=== PATIENT | female | born 1995 | race Caucasian/White ===

== ENCOUNTER 2022-06-29 16:15 | Outpatient (REF) | payer BC, SELFPAY ==
[2022-06-29 16:50] LABS: HCG Qual (Serum) Negative
== END 2022-06-29 16:16 | disposition home or self-care (01) ==
LOC: NCHCN 16:15
PROVIDERS: Visit Provider Nurse Practitioner Family
DX: N91.2 Amenorrhea, unspecified (principal)
CPT/HCPCS: 84703

== ENCOUNTER 2022-08-20 18:16 | Outpatient (REF) | payer BC, SELFPAY ==
[2022-08-20 23:54] LABS: Bacteria Few HPF (Negative); C & S Indicated? C&S Done As Ordered; Casts Negative LPF (Negative); Crystals Negative HPF (Negative); Epithelial Cells Moderate HPF (Negative); Mucus Trace (Negative); Other Cells Rare Transitional (Negative); RBC 0-2 HPF (0-2)
== END 2022-08-20 18:17 | disposition home or self-care (01) ==
LOC: LBN 18:16
PROVIDERS: Visit Provider Nurse Practitioner Family
DX: R30.0 Dysuria (principal)
CPT/HCPCS: 87077; 81015; 87086; 87186

== ENCOUNTER 2023-05-22 13:07 | Outpatient (REF) | payer BC, SELFPAY ==
[2023-05-22 19:29] LABS: Abs Immature Grans 0.01 10^3/uL (0.0-0.06); Absolute Basophil Count 0.03 10^3/uL (0.0-0.2); Absolute Eosinophil Count 0.09 10^3/uL (0.0-0.7); Absolute Lymphocyte Count 2.16 10^3/uL (1.2-3.4); Absolute Monocyte Count 0.32 10^3/uL (0.1-0.8); Absolute Neutrophil Count 3.93 10^3/uL (1.2-6.7); Basophils % 0.5; Eosinophils % 1.4; HCT 37.9 % (36.0-46.0); HGB 12.5 g/dL (11.2-15.7); Immature Grans % 0.2; MCH 28.2 pg (27.0-33.0); MCV 86 fL (80-95); MPV 11.9 fL (8.0-11.0); Monocytes % 4.9; Platelet Count 286 10^3/uL (130-400); RBC 4.43 10^6/uL (3.93-5.22); RDW 12.8 % (11.7-14.6); RDW-SD 39.8 fL; WBC 6.54 10^3/uL (4.4-10.8)
[2023-05-22 19:47] LABS: ALT 38 U/L (14-59); AST 31 U/L (15-37); Albumin 4.2 g/dL (3.4-5.0); Alkaline Phosphatase 83 U/L (46-116); Anion Gap 9.5 mmol/L (3-11); BUN 11 mg/dL (7-18); Bilirubin, Total 0.3 mg/dL (0.2-1.0); CO2 27.5 mmol/L (21.0-32.0); CREATININE 0.7 mg/dL (0.55-1.02); Calcium 9.5 mg/dL (8.5-10.1); Chloride 104 mmol/L (98-107); Estimated GFR 119.24 (mL/min/1.73m2); Glucose 121 mg/dL (74-106); Potassium 3.9 mmol/L (3.5-5.1); Sodium 141 mmol/L (136-145); TSH (W/Ref FT4) 2.47 uIU/mL (0.36-3.74)
[2023-05-22 19:48] LABS: Hemoglobin A1C 5.7 % (<5.7)
== END 2023-05-22 13:08 | disposition home or self-care (01) ==
LOC: NCHCN 13:07
PROVIDERS: Visit Provider Nurse Practitioner Family
DX: Z31.9 Encounter for procreative management, unspecified (principal)
CPT/HCPCS: 80053; 83036; 84443; 85025

== ENCOUNTER 2023-06-07 14:23 | Outpatient (CLI) | payer BC, SELFPAY ==
[2023-06-07 14:25] LABS: HCG Quant, Pregnancy 1839 mIU/mL (1-3)
== END 2023-06-07 14:24 | disposition home or self-care (01) ==
LOC: LBO 14:23
PROVIDERS: Visit Provider Obstetrics & Gynecology Gynecology
DX: O20.9 Hemorrhage in early pregnancy, unspecified (principal)
CPT/HCPCS: 36415; 86850; 86900; 86901; 84702

== ENCOUNTER 2023-06-10 07:48 | Outpatient (CLI) | payer BC, SELFPAY ==
[2023-06-10 09:17] LABS: HCG Quant, Pregnancy 6546 mIU/mL (1-3)
== END 2023-06-10 07:49 | disposition home or self-care (01) ==
LOC: LBO 07:48
PROVIDERS: Visit Provider Obstetrics & Gynecology Gynecology
DX: O20.8 Other hemorrhage in early pregnancy (principal)
CPT/HCPCS: 36415; 84702

== ENCOUNTER 2023-07-16 01:34 | Outpatient (CLI) | payer BC, SELFPAY ==
[2023-07-16 16:22] LABS: Abs Immature Grans 0.03 10^3/uL (0.0-0.06); Absolute Basophil Count 0.04 10^3/uL (0.0-0.2); Absolute Eosinophil Count 0.05 10^3/uL (0.0-0.7); Absolute Lymphocyte Count 2.26 10^3/uL (1.2-3.4); Absolute Monocyte Count 0.53 10^3/uL (0.1-0.8); Absolute Neutrophil Count 7.12 10^3/uL (1.2-6.7); Basophils % 0.4 %; Eosinophils % 0.5 %; HCT 38.2 % (36.0-46.0); HGB 12.6 g/dL (11.2-15.7); Immature Grans % 0.3 %; Lymphocytes % 22.5 %; MCH 28.6 pg (27.0-33.0); MCV 87 fL (80-95); MPV 10.9 fL (8.0-11.0); Monocytes % 5.3 %; Platelet Count 302 10^3/uL (130-400); RBC 4.41 10^6/uL (3.93-5.22); RDW 13.3 % (11.7-14.6); RDW-SD 42.2 fL; WBC 10.03 10^3/uL (4.4-10.8)
[2023-07-17 10:17] LABS: Hepatitis B Surface Ag Negative (Negative)
[2023-07-17 10:48] LABS: Hepatitis C Ab w Rflx HCV PCR Negative (Negative)
[2023-07-17 10:51] LABS: HIV-1/2 Ag & Ab Screen Negative (Negative)
[2023-07-17 12:07] LABS: Varicella IgG Antibody Positive (See Note)
[2023-07-17 12:10] LABS: Rubella IgG Ab (UVM) Positive (See Note)
[2023-07-18 15:29] LABS: Syphilis IgG w/Reflex Nonreactive (Nonreactive)
[2023-07-22 07:41] LABS: Specimen WB Whole Blood
[2023-07-29 16:39] LABS: Result Summary NEGATIVE; Specimen WB Whole Blood
== END 2023-07-16 01:35 | disposition home or self-care (01) ==
LOC: LBO 01:34
PROVIDERS: Visit Provider Advanced Practice Midwife
DX: Z34.91 Encounter for supervision of normal pregnancy, unspecified, first trimester (principal)
CPT/HCPCS: 36415; 81220; 81222; 81329; 86787; 86803; 86850; 86900; 86901; 87340; 87389; 85025; 86762; 86780

== ENCOUNTER 2023-07-16 14:52 | Outpatient (REF) | payer BC, SELFPAY ==
--- NOTE | 2023-07-16 14:00 | PAPFT_PTH ---
PATIENT: Carmela Ragsdale LOC: [facility] U#:[id number] AGE/SX: 28/F ROOM: RE07/16/[address]: Michelle Arellano CNM : 1995 BED: DIS: 07/16/2023 SPEC #: [id number] RECD: 07/16/23 17:33 STATUS: MARY REQ #: [id number] SLY: 07/16/23 14:[address]: Michelle Arellano DEPT: [facility] Cytology RECD BY: bIeth Dumont ENTERED: 07/16/23 17:33 SP TYPE: PAPFT OT DR: Unknown,Unknown Tissues: 1 - CX/ENDOCX FOR PAP SMEARS Procedures: PAP THIN PREP/UVM Screening HPV DNA PROBE Comments: [id number] (NATHANIEL/KIM)
[2023-07-17 14:53] LABS: Chlamydia Result Negative (Negative); GC Result Negative (Negative)
== END 2023-07-16 14:53 | disposition home or self-care (01) ==
LOC: LBN 14:52
PROVIDERS: Visit Provider Advanced Practice Midwife
DX: Z34.91 Encounter for supervision of normal pregnancy, unspecified, first trimester (principal); B96.89 Other specified bacterial agents as the cause of diseases classified elsewhere
CPT/HCPCS: 87491; 87591; 88142; 87086; 87624

== ENCOUNTER 2023-08-02 02:35 | Outpatient (CLI) | payer BC, SELFPAY ==
[2023-08-02 14:09] LABS: Panorama Kit Sent via Fed Ex
[2023-08-02 14:22] LABS: Glucose,1 Hr (Glucola) 96 mg/dL (80-140)
== END 2023-08-02 02:36 | disposition home or self-care (01) ==
LOC: LBO 02:36
PROVIDERS: Visit Provider Advanced Practice Midwife
DX: Z34.91 Encounter for supervision of normal pregnancy, unspecified, first trimester (principal); Z3A.12 12 weeks gestation of pregnancy
CPT/HCPCS: 36415; 82950

== ENCOUNTER 2023-11-20 02:07 | Outpatient (CLI) | payer BC, SELFPAY ==
[2023-11-20 14:42] LABS: Glucose,1 Hr (Glucola) 147 mg/dL (80-140)
[2023-11-20 14:43] LABS: HCT 28.2 % (36.0-46.0); HGB 9.3 g/dL (11.2-15.7); MCH 27.4 pg (27.0-33.0); MCV 83 fL (80-95); MPV 11.2 fL (8.0-11.0); Platelet Count 278 10^3/uL (130-400); RDW 13.8 % (11.7-14.6); RDW-SD 41.5 fL; WBC 8.73 10^3/uL (4.4-10.8)
== END 2023-11-20 02:08 | disposition home or self-care (01) ==
LOC: LBO 02:07
PROVIDERS: Visit Provider Advanced Practice Midwife
DX: Z34.93 Encounter for supervision of normal pregnancy, unspecified, third trimester (principal); O26.899 Other specified pregnancy related conditions, unspecified trimester; Z67.91 Unspecified blood type, Rh negative
CPT/HCPCS: 36415; 82950; 85027; 86850; 90384

== ENCOUNTER 2023-11-28 03:07 | Outpatient (CLI) | payer BC, SELFPAY ==
[2023-11-28 11:12] LABS: Glucose 1 Hour 178 mg/dL
[2023-11-28 11:31] LABS: Glucose 3 Hour 91 mg/dL
== END 2023-11-28 03:08 | disposition home or self-care (01) ==
LOC: LBO 03:07
PROVIDERS: Visit Provider Advanced Practice Midwife
DX: Z34.93 Encounter for supervision of normal pregnancy, unspecified, third trimester (principal)
CPT/HCPCS: 36415; 82951

== ENCOUNTER 2023-12-17 03:11 | Outpatient (CLI) | payer BC, SELFPAY ==
[2023-12-17 15:26] LABS: HCT 35.9 % (36.0-46.0); HGB 11.5 g/dL (11.2-15.7); MCV 88 fL (80-95); MPV 11.5 fL (8.0-11.0); Platelet Count 232 10^3/uL (130-400); RDW 17.8 % (11.7-14.6); RDW-SD 55.7 fL; WBC 8.44 10^3/uL (4.4-10.8)
[2023-12-17 17:21] LABS: ALT 19 U/L (14-59); AST 18 U/L (15-37); Albumin 2.8 g/dL (3.4-5.0); Alkaline Phosphatase 98 U/L (46-116); BUN 8 mg/dL (7-18); Bilirubin, Total 0.29 mg/dL (0.2-1.0); CREATININE 0.7 mg/dL (0.55-1.02); Calcium 9.4 mg/dL (8.5-10.1); Chloride 105 mmol/L (98-107); Estimated GFR 119.24 (mL/min/1.73m2); Glucose 90 mg/dL (74-106); Potassium 3.8 mmol/L (3.5-5.1); Sodium 141 mmol/L (136-145); Total Protein 6.7 g/dL (6.4-8.2)
== END 2023-12-17 03:12 | disposition home or self-care (01) ==
LOC: LBO 03:11
PROVIDERS: Visit Provider Advanced Practice Midwife
DX: Z34.93 Encounter for supervision of normal pregnancy, unspecified, third trimester (principal); O99.013 Anemia complicating pregnancy, third trimester
CPT/HCPCS: 36415; 80053; 85027

== ENCOUNTER 2023-12-24 14:54 | Outpatient (REF) | payer BC, SELFPAY ==
[2023-12-24 16:53] LABS: Bilirubin Negative (Negative); Blood Trace-lysed (Negative); Clarity Sl Cloudy (Clear); Glucose Negative (Negative); Ketones Negative (Negative); Leukocyte Esterase Moderate (Negative); Nitrite Negative (Negative); Specific Gravity <= 1.005 (1.005-1.025); Urobilinogen 0.2 mg/dL (Up to 0.2)
[2023-12-24 17:09] LABS: Bacteria Few HPF (Negative); C & S Indicated? C&S Done As Ordered; Crystals Negative HPF (Negative); Epithelial Cells Many HPF (Negative); Mucus Negative (Negative); RBC 0-2 HPF (0-2); WBC >50 HPF (0-5)
== END 2023-12-24 14:55 | disposition home or self-care (01) ==
LOC: LBN 14:54
PROVIDERS: Visit Provider Advanced Practice Midwife
DX: Z34.93 Encounter for supervision of normal pregnancy, unspecified, third trimester (principal); R10.9 Unspecified abdominal pain
CPT/HCPCS: 81003; 81015; 87086

== ENCOUNTER 2024-01-01 00:56 | Outpatient (CLI) | payer BC, SELFPAY ==
--- NOTE | 2024-01-01 07:00 | DI.US_ITS ---
Exam(s) US OB CUBA WEIGHT EXAM: US OB CUBA WEIGHT CLINICAL HISTORY: bleeding,z34.90. TECHNIQUE: Transabdominal obstetrical ultrasound performed. COMPARISON: US POCUS EXAM from 07/16/2023 US US OB 2-3 TRIMESTER from 09/18/2023 US US OB F/U FACIAL/LVOT/RVOT from 10/02/2023 FINDINGS:: Number of fetuses: 1 position: CEPHALIC Placental location: POSTERIOR, grade 2. No placental abnormality. No evidence of previa. BIOMETRIC DATA: BPD: 8.8cm, 35weeks 4days HC: 32.47cm, 36weeks 5days AC: 33.46cm, 37weeks 3days FL: 6.96cm, 35weeks 5days EFW: 3,004.98g, 6lb 10.7oz, 97% Composite Age: 36weeks 3days BRIDGET: 01/26/2024 Heart Rate: 159bpm Amniotic fluid index: 14.28cm. Visually, amount of fluid is within normal limits. IMPRESSION: size is measuring approximately 2 weeks greater than dates. DATA REPOSITORY:
== END 2024-01-01 01:16 ==
LOC: DI 00:56
PROVIDERS: Visit Provider Advanced Practice Midwife
DX: Z34.93 Encounter for supervision of normal pregnancy, unspecified, third trimester (principal); Z3A.35 35 weeks gestation of pregnancy
CPT/HCPCS: 76816

== ENCOUNTER 2024-01-13 14:00 | Outpatient (REF) | payer BC, SELFPAY ==
[2024-01-13 18:31] LABS: PROTEIN 14.3 mg/dL; Prot/Crea Ur Ratio 0.24
== END 2024-01-13 14:01 | disposition home or self-care (01) ==
LOC: LBN 14:00
PROVIDERS: Visit Provider Advanced Practice Midwife
DX: Z34.93 Encounter for supervision of normal pregnancy, unspecified, third trimester (principal); R60.0 Localized edema
CPT/HCPCS: 82565; 84156; 87081

== ENCOUNTER 2024-02-04 14:38 | Inpatient (IN) | payer BC, SELFPAY ==
[2024-02-04] VITALS (92 sets, daily range): BP systolic 105–139; BP diastolic 57–81; PULSE 88–121; RESP 16–18; TEMP 36.6–37.2; O2SAT 96–100; BMI 26.5
[2024-02-04 13:48] LABS: ROM Plus Positive
--- NOTE | 2024-02-04 15:13 | W.PM.OBHPL1 ---
Date of service: 02/04/24 Time of Service: 15:13 Assessment and Plan Assessment and plan (1) Spontaneous onset of labor: Status: Acute Assessment and plan: Admit to Center and routine admission labs. Comfort measures. Consider augmentation of labor if indicated. Anticipate . OB-HPI Labor/Delivery History of Present Illness Reason for Visit: NST Chief Complaint: Uterine Contractions; Suspected Rupture of Membranes , Associated Signs and Symptoms of Suspected ROM: bloody mucus. BRIDGET Calculator Estimated Delivery Date Method Current WG Current Estimate 02/12/24 Ultrasound #1 38w 6d Other Estimates 01/31/24 LMP (Certain) 40w 4d History of Present Expected Delivery Route/Plan - CNM FOB/ - Brenden Jn (first child) BB yes to circ, not naming until after Wants to use the tub for labor, hopes to avoid epidural but ok if needed GBS negative Specific Issues/Plan 1. BMI 31, early glucola 88, 28 weeks- 147, 3-hrGTT nml x3, 2 hr level slightly elevated, fasting and 1 hr high-nml 1a. at 29 wk advise pt to avoid sweets, increase exercise, check random glucose at PNV, random glucose 90 2. cfDNA - WNL, CF & SMA negative, 3. Pt born via c/s, weighed 8'7, pt's mother also born by c/s 4. Pt reveals she thinks she has anxiety issues, never dx'ed or needed Rx 5. Rh negative, RhoGam @ 28 wks on 11/20/23 6. Heart defect - paternal cousin, [facility] level 2 offered. Informed cousin had hypo-plastic left heart 6a. Has decided to do US here at [facility] and will go [facility] for follow 7. Pt never started low dose ASA @ 12 wks as recommended, decided to start @ 22 wks 8. Desires LC consult after 36 wks but prior to 9. Anemia - Hgb 9.3 -Taking gummy vitamins, iron supplement daily recommended. 9. 12/16 - serum Hgb 11.5; POC hgb @ 36 wks-11.0 10. Size greater than dates - US at 34 weeks - 14.28, EFW 97%ile, QID testing x2 wks=nml Assessment: History Reviewed & Current Informed Consent Informed Consent: Risk,Benefits,Alternatives Discussed (expectant management v. labor augmentation. ) PFSH All Active Problems (Updated 02/04/24 @ 15:16 by Lisa Colin CNM) Spontaneous onset of labor (Acute) Pedal edema (Acute) Anemia affecting first (Acute) Rh negative state in antepartum period (Acute) Bleeding in early (Acute) 06/07/23. [place] discharge on toilet tissue. hCG 1839/ Rh Oneg 06/10/23. repeat hC. Pt will keep 07/01/23 u/s appt. (Acute) Medical History (Updated 02/04/24 @ 15:16 by Lisa Colin CNM) Missed menses Social History (System 10/18/23 @ 13:10 by Mila Dalton) Smoking/Tobacco Use Status: Never Smoking risk assessment performed?: Yes History History 1 Para 0 Hx # Term Pregnancies 0 Multiple births 0 Hx # Pregnancies 0 Ectopic pregnancies 0 AB induced 0 Hx Number of Living Children 0 AB spontaneous 0 Meds Allergies and Home Medications Allergies Allergy/AdvReac Type Severity Reaction Status Date / Time No Known Allergies Allergy Verified 01/31/24 09:10 Home Medications ?Medication ?Instructions ?Recorded ?Confirmed ?Type vits no.126-ferrous fum 1 tab PO DAILY 06/04/23 01/31/24 History 28 mg iron-folic acid 800 mcg tablet (Classic ) aspirin 81 mg chewable tablet 81 mg PO DAILY 11/05/23 01/31/24 History ferrous sulfate 325 mg (65 mg 325 mg PO DAILY #30 tabs 11/20/23 01/31/24 Rx iron) tablet (Feosol) polyethylene glycol 3350 17 17 g PO DAILY 01/01/24 01/31/24 History gram/dose oral powder (Miralax) pantoprazole 40 mg tablet,delayed 40 mg PO DAILY #30 tabs 01/10/24 01/31/24 Rx release (Protonix) docusate sodium 100 mg capsule 100 mg PO TID #90 caps 01/13/24 01/31/24 Rx (Colace) inulin 2 gram chewable tablet 2 g PO .two times daily 01/24/24 01/31/24 History (Fiber Gummies) Exam Physical Exam Vital signs: Pulse BP 102 H 126/81 02/04/24 13:16 02/04/24 13:16 Vital Signs Reviewed: Yes Constitutional Constitutional: no acute distress Detailed Labor and Delivery Exam Dilation: 1 Effacement (%): 50 station: -2 Cervix position: mid Consistency: soft Payne Score: Cervical Points Exam 0 1 2 3 Dilation Closed 1-2cm 3-4 cm 5-6cm Effacement 0-30% 40-50% 60-70% 80% Consistency Firm Medium Soft Station -3 -2 -1,0 +1,+2 Position Posterior Mid Anterior Amniotic Membrane Status: Ruptured Rupture Method: Spontaneous Amniotic Fluid: Clear Pooling: Negative ROM Plus: Positive Monitor Mode: External Contraction Frequency(min): every 2 min Contraction Duration(sec): 40 Contraction Intensity: Moderate Fetus A Heart Rate Baseline: 135 Monitor Accelerations: 15 X 15 Monitor Decelerations: None Variability: Moderate (6-25 BPM) Presentation: Cephalic Categories: Category I Date of Membrane Rupture: 02/04/24 Time of Membrane Rupture: 11:00 HEENT Exam HEENT Exam: Normal Respiratory Exam Respiratory Exam: Normal Cardiovascular Exam Cardiovascular Exam: Normal Exam Exam: Normal Extremities Exam Extremities Exam: Normal Skin Exam Skin Exam: Normal Psychiatric Exam Psychiatric Exam: Normal Risk Assessment Risk for Shoulder Dystocia Historical/Initial OB: POSITIVE FOR: Pre- BMI>30; NEGATIVE FOR: Pelvic Abnormality, Previous Shoulder Dystocia or Previous Macrosomia 36 Weeks: NEGATIVE FOR: Current Gestational DM, EFW>4500gms or Maternal Weight Gain>40lbs 40 Weeks: NEGATIVE FOR: EFW> 4500 gms, Maternal Weight Gain >40lb or Post Dates Increased Risk?: No Risk for Pre-Eclampsia Daily Dose ASA Indicated: Yes Date Initiated/Initials: to start low dose ASA at 12 wks. JK Yes, if one or more: NEGATIVE FOR: Hx Pre-E/Gest HTN, Chronic HTN, Multiple Gestation, Pre-gestational DM, Renal Disease, Systemic Lupus or APA Syndrome Yes, if 2 or more: POSITIVE FOR: Nulliparity, BMI>30 and Mother/Sister w/ Pre-E; NEGATIVE FOR: Age>= 35 yrs, >10yr btwn pregnancies, ethinicty or Previous IUGR Risk for Post- Hemorrhage Initial: NEGATIVE FOR: Multiple Gestation, Previous PPH, Known Clotting Deficiency, Grand Multiparity or Anticoagulation 36 Weeks: NEGATIVE FOR: Anemia, hgb<10, Low platelets(thrombocytopenia), Gestational HTN or Pre-E, Polyhydraminios or EFW>4500gms 40 Weeks: NEGATIVE FOR: Anemia, hgb<10, Low platelets (thrombocytopenia), Gestation HTN or Pre-E, Polyhydraminios or EFW>4500gms At Risk?: No Risks Reviewed Risks Reviewed Upon Admission: Yes
[2024-02-04 15:42] LABS: HCT 40.1 % (36.0-46.0); HGB 13.2 g/dL (11.2-15.7); MCH 28.3 pg (27.0-33.0); MCHC 32.9 % (32.0-36.0); MCV 86 fL (80-95); Platelet Count 199 10^3/uL (130-400); RBC 4.66 10^6/uL (3.93-5.22); RDW 16.2 % (11.7-14.6); WBC 10.81 10^3/uL (4.4-10.8)
[2024-02-04] MEDS: Lactated Ringers 250 ML 500 ML IV (19:55)
--- NOTE | 2024-02-04 19:57 | ANES.PREOP_ITS ---
General Info Date of Service Date Performed: 02/04/24 Height: 5 ft 3 in Weight: 68.039 kg Body Mass Index (BMI): 26.5 Meds Allergies and Home Medications Allergies Allergy/AdvReac Type Severity Reaction Status Date / Time No Known Allergies Allergy Verified 01/31/24 09:10 Home Medication ?Medication ?Instructions ?Recorded vits no.126-ferrous fum 1 tab PO DAILY 06/04/23 28 mg iron-folic acid 800 mcg tablet (Classic ) aspirin 81 mg chewable tablet 81 mg PO DAILY 11/05/23 ferrous sulfate 325 mg (65 mg 325 mg PO DAILY #30 tabs 11/20/23 iron) tablet (Feosol) polyethylene glycol 3350 17 17 g PO DAILY 01/01/24 gram/dose oral powder (Miralax) pantoprazole 40 mg tablet,delayed 40 mg PO DAILY #30 tabs 01/10/24 release (Protonix) docusate sodium 100 mg capsule 100 mg PO TID #90 caps 01/13/24 (Colace) inulin 2 gram chewable tablet 2 g PO .two times daily 01/24/24 (Fiber Gummies) Current Visit Medications: Current Medications Generic Name Dose Route Start Last Admin Trade Name Freq PRN Reason Stop Dose Admin IV Miscellaneous Supplies 1 each 02/04/24 14:45 Iv Access IV DIRECTED SUSI Sodium Chloride 0 ml 02/04/24 14:38 Normal Saline Flush 10 Ml Syr IVP PRN PRN Sodium Chloride 0 ml 02/04/24 20:00 Normal Saline Flush 10 Ml Syr IVP BID SUSI Sodium Chloride 0 ml 02/04/24 14:38 Normal Saline 10 Ml Vial IJ DIRECTED PRN PFSH Active Problems Active Problems: Problem Status Onset Code Spontaneous onset of labor Acute Pedal edema Acute R60.0 Anemia affecting first Acute O99.019 Rh negative state in antepartum period Acute O26.899, Z67.91 Bleeding in early Acute O20.9 Acute Z34.90 Medical History Medical History (Updated 02/04/24 @ 15:16 by Lisa Colin CNM) Missed menses Tobacco Smoking/Tobacco Use Status: Never Alcohol Alcohol Intake: former Substance Use Substance use type: does not use Prental History History 2 1 Para 0 Hx # Term Pregnancies 0 Multiple births 0 Hx # Pregnancies 0 Ectopic pregnancies 0 AB induced 0 Hx Number of Living Children 0 AB spontaneous 0 Vital Signs and Lab Results Vital Signs Most Recent Vital Signs in EMR: Most Recent Vital Signs Temp Pulse Resp BP Pulse Ox 37.2 C 104 H 16 110/62 98 02/04/24 19:27 02/04/24 19:27 02/04/24 19:27 02/04/24 19:27 02/04/24 19:27 Lab Results 02/04/24 15:25 Blood Type / Crossmatch: 2 Antibody Screen POSITIVE 02/04/24 Complete Blood Count: 2 White Blood Count 10.81 10^3/uL (4.4-10.8) H 02/04/24 15:25 Red Blood Count 4.66 10^6/uL (3.93-5.22) 02/04/24 15:25 Hemoglobin 13.2 g/dL (11.2-15.7) 02/04/24 15:25 Hematocrit 40.1 % (36.0-46.0) 02/04/24 15:25 Platelet Count 199 10^3/uL (130-400) 02/04/24 15:25 Complete Metabolic Panel: 2 No Data to Display Liver Function Panel: 2 No Data to Display Coagulation Panel: 2 No Data to Display Cardiac Panel: 2 No Data to Display Arterial Blood Gas: 2 No Data to Display Venous Blood Gas: 2 No Data to Display Pancreas Panel: 2 No Data to Display Thyroid Panel: 2 No Data to Display Infectious Disease: 2 No Data to Display Blood Cultures: 2 No Data to Display Toxicology Panel: 2 No Data to Display Panel: 2 No Data to Display Anesthesia Assessment and Plan Anesthesia History Personal History: No History of General Anesthesia Family History: No Family History of Anesthesia Complications Exercise Tolerance Exercise Tolerance: Metabolic Equivalents>4 Pertinent Negatives Pertinent Negatives: No Major Cardiovascular Symptoms or Complaints and No Major Pulmonary Symptoms or Complaints Cardiac & Pulmonary Exam Cardiac Exam: Normal S1/S2 Heart Sounds Pulmonary Exam: Clear Bilateral Breath Sounds Implantable Cardiac Device Does patient have a Pacemaker or an ICD?: No Airway Exam Known Difficult Airway: No Mallampati Class: 3 Mouth Opening: Normal (> 3cm) Thyromental Distance: Greater than 3 cm Neck Range of Motion: Full ROM Neck Circumference: Thick Teeth Condition: Normal Dentition ASA Classification ASA Score: ASA 2 Emergency Case?: No NPO Status NPO Status: Full Stomach Status Status: Confirmed Anesthesia Plan Resuscitation Status: Full Code Anesthesia Technique: Labor Epidural Airway Planned: Natural Airway Monitors Used: Standard Monitors
[2024-02-04] MEDS: fentaNYL 100 MCG/2 ML VIAL (20:28)
[2024-02-04] MEDS: Bupivacaine 0.25% Pres-Free 10 ML VIAL (20:28)
[2024-02-04] MEDS: FentaNYL/ROPIvacaine 2 mcg/ml and 0.1% 200 ML CADD Cassette EP (20:52)
--- NOTE | 2024-02-04 20:59 | W.ANESNEU ---
Epidural/Spinal Catheter Date Performed: 02/04/24 Procedure Start: 20:19 Procedure Stop: 20:54 Requesting Provider: Lisa Colin Procedure Location: Obstetrics Reason Performed: Labor Epidural Standard Monitors Applied: Blood Pressure, SpO2 and See EMR for corresponding vital signs Patient Position: Sitting Sedation Given (Indicate Dose Given): No Sedation given Patient Mental Status: Awake Sterility: Hand Hygiene, Surgical Cap, Surgical Mask, Sterile Gloves, Sterile Drape/Sheet and Chlorhexidine Procedure Location: L3-L4 Interspace Epidural Needle: Tuohy 18 Gauge Needle Length: 3.5 Inch Needle Approach: Midline Epidural Procedure: Skin Prepped, Sterile Drape Placed, 1% Lidocaine to skin and subcutaneous tissue with 25G needle, Tuohy Needle placed, ASHVIN to Saline Used, Epidural Catheter Placed, Negative Heme, Negative CSF Flow and Tuohy Needle Removed Catheter Placed?: Catheter Placed Test Dose (Indicate Dose Given): 3ml 1.5% Lidocaine with 1:200K Epinephrine Given and Negative Test Dose Loss of Resistance Depth (cm): 7 Catheter depth at skin (cm): 13 Dressing: [place] Dressing Placed and Mastisol Used Epidural Provider Bolus (Indicate Dose Given): Total bolus dose given in 3-5 ml divided doses and Total Bupivacaine 0.25% Given (ml) Dose:: 5 mL Additives (Indicate Dose Given ): Fentanyl PF Dose:: 100 mcg Infusion Medication: Medication Infusion Began Medication Infusion: Ropivacaine 0.1% with Fentanyl 2mcg/ml Maintenance Infusion Rate (ml/hour): 10 PCEA Bolus Dose (ml): 5 Post Procedure Pain score (0-10): 2 Block Level: N/A Paresthesia: Left Paresthesia Duration: Transient Ultrasound: Not Used Number of Attempts (See previous attempts in note section): 1 Procedure Tolerated: No Complications and Patient tolerated well Procedure Outcome: Successful Procedure Comment:: Left leg with slight numbness below knee, good strong pedal push bilateral, equal melissa comfort level at abdomen. Performed By: Mikala Cruz
[2024-02-05] VITALS (163 sets, daily range): BP systolic 94–133; BP diastolic 53–97; PULSE 0–176; RESP 16–88; TEMP 35.9–38.1; O2SAT 92–100
--- NOTE | 2024-02-05 00:13 | W.PM.OBNL1 ---
Date of service: 02/05/24 Time of Service: 00:13 Informed Consent Informed Consent: Risk,Benefits,Alternatives Discussed (expectant management v. labor augmentation. ) Pelvic Exam Dilation: 10 station: -1 Comments: caput noted Contractions Monitor Mode: External Contraction Frequency(min): every 3 min Contraction Duration(sec): 40 Intensity: Moderate/Strong Fetus A Monitor: External (US) Heart Rate Baseline: 150 Presentation: Cephalic Variability: Moderate (6-25 BPM) Categories: Category I FHR Rhythm: Regular Accelerations: 15 X 15 Decelerations: Variable Recurrence: Episodic Amniotic Membrane Status: Ruptured Rupture Method: Spontaneous Amniotic Fluid: Bloody and Clear Date of Membrane Rupture: 02/04/24 Time of Membrane Rupture: 06:00 Assessment and Plan Assessment and plan (1) Spontaneous onset of labor: Status: Acute Assessment and plan: Genoveva attempted a push and she had no control of her muscles due to epidural. Will encourage rest and laboring down and begin pushing when the urge is stronger. Anticipate . Repositioned on her right side with the peanut ball. Objective Abnormal lab results 02/04/24 Range/Units 15:25 WBC 10.81 H (4.4-10.8) 10^3/uL RDW 16.2 H (11.7-14.6) % MPV 12.0 H (8.0-11.0) fL Temp Pulse Resp BP Pulse Ox 98.6 F 114 H 16 119/61 99 02/04/24 21:18 02/04/24 23:32 02/04/24 22:00 02/04/24 23:19 02/04/24 23:32 Laboratory Results WBC 10.81 10^3/uL (4.4-10.8) H 02/04/24 15:25 RBC 4.66 10^6/uL (3.93-5.22) 02/04/24 15:25 Hgb 13.2 g/dL (11.2-15.7) 02/04/24 15:25 Hct 40.1 % (36.0-46.0) 02/04/24 15:25 MCV 86 fL (80-95) 02/04/24 15:25 MCH 28.3 pg (27.0-33.0) 02/04/24 15:25 MCHC 32.9 % (32.0-36.0) 02/04/24 15:25 RDW 16.2 % (11.7-14.6) H 02/04/24 15:25 Plt Count 199 10^3/uL (130-400) 02/04/24 15:25 MPV 12.0 fL (8.0-11.0) H 02/04/24 15:25 Membranes Rupture Positive 02/04/24 13:05 ABO/Rh O Negative 02/04/24 14:55 Antibody Screen POSITIVE 02/04/24 14:55 Antibody Identification Anti-D 02/04/24 14:55 Subjective Patient Reports: New Complaints Interval history since last seen: Genoveva rested but was unable to sleep. She felt an increase in pressure and requested a cervical exam. Results Hemoglobin/Hematocrit: Hgb 13.2 g/dL (11.2-15.7) 02/04/24 15:25 Hct 40.1 % (36.0-46.0) 02/04/24 15:25 Abnormal Lab Findings: Abnormal Labs 02/04/24 15:25 WBC 10.81 H RDW 16.2 H MPV 12.0 H
--- NOTE | 2024-02-05 00:17 | W.PM.OBNL1 ---
Date of service: 02/04/24 Time of Service: 21:00 Informed Consent Informed Consent: Risk,Benefits,Alternatives Discussed (expectant management v. labor augmentation. ) Pelvic Exam Dilation: 4 Effacement (%): 90 station: -2 Cervix Position: mid Consistency: soft Vaginal Exam Presentation: Vertex Comments: bloody show noted Contractions Monitor Mode: External Contraction Frequency(min): every 3 min Contraction Duration(sec): 60 Intensity: Strong Fetus A Monitor: External (US) Presentation: Cephalic Variability: Moderate (6-25 BPM) Categories: Category I FHR Rhythm: Regular Accelerations: 15 X 15 Decelerations: None Amniotic Membrane Status: Ruptured Rupture Method: Spontaneous Amniotic Fluid: Bloody Date of Membrane Rupture: 02/04/24 Time of Membrane Rupture: 06:00 Assessment and Plan Assessment and plan (1) Spontaneous onset of labor: Status: Acute Assessment and plan: rest was encouraged and comfort measures. Anticipate . Will reassess in 3 hours. Objective Abnormal lab results 02/04/24 Range/Units 15:25 WBC 10.81 H (4.4-10.8) 10^3/uL RDW 16.2 H (11.7-14.6) % MPV 12.0 H (8.0-11.0) fL Temp Pulse Resp BP Pulse Ox 98.6 F 114 H 16 119/61 99 02/04/24 21:18 02/04/24 23:32 02/04/24 22:00 02/04/24 23:19 02/04/24 23:32 Laboratory Results WBC 10.81 10^3/uL (4.4-10.8) H 02/04/24 15:25 RBC 4.66 10^6/uL (3.93-5.22) 02/04/24 15:25 Hgb 13.2 g/dL (11.2-15.7) 02/04/24 15:25 Hct 40.1 % (36.0-46.0) 02/04/24 15:25 MCV 86 fL (80-95) 02/04/24 15:25 MCH 28.3 pg (27.0-33.0) 02/04/24 15:25 MCHC 32.9 % (32.0-36.0) 02/04/24 15:25 RDW 16.2 % (11.7-14.6) H 02/04/24 15:25 Plt Count 199 10^3/uL (130-400) 02/04/24 15:25 MPV 12.0 fL (8.0-11.0) H 02/04/24 15:25 Membranes Rupture Positive 02/04/24 13:05 ABO/Rh O Negative 02/04/24 14:55 Antibody Screen POSITIVE 02/04/24 14:55 Antibody Identification Anti-D 02/04/24 14:55 Subjective Patient Reports: New Complaints Interval history since last seen: Genoveva complains of stronger contractions and requested an epidural. She reports that she began leaking small amounts of clear fluid at 0600 this morning. Epidural was placed by Tasha solorio CNM with excellent effect Results Hemoglobin/Hematocrit: Hgb 13.2 g/dL (11.2-15.7) 02/04/24 15:25 Hct 40.1 % (36.0-46.0) 02/04/24 15:25 Abnormal Lab Findings: Abnormal Labs 02/04/24 15:25 WBC 10.81 H RDW 16.2 H MPV 12.0 H
[2024-02-05] MEDS: Acetaminophen 500 MG TAB 1000 MG PO (01:00)
[2024-02-05] MEDS: AMPICILLIN SODIUM 2 GM in Normal Saline 100 ML IVPB ×4 (02:00→20:58)
--- NOTE | 2024-02-05 02:01 | PGE_ITS ---
Date of service: 02/05/24 Time of Service: 02:02 Informed Consent Informed Consent: Risk,Benefits,Alternatives Discussed (expectant management v. labor augmentation. ) Pelvic Exam Dilation: 10 station: 0 Contractions Monitor Mode: External Contraction Frequency(min): every 3-4 Contraction Duration(sec): 60 Intensity: Moderate/Strong Fetus A Monitor: Internal (FSE) Heart Rate Baseline: 160 Presentation: Cephalic Variability: Moderate (6-25 BPM) Categories: Category II CategoryII Plan of Care: Intrauterine Resuscitation (IV fluid bolus and tylenol 1000 mg PO), Team Huddle, Observation, Medical Consult (Dr Saxena) and Continuous Monitoring/Observation FHR Rhythm: Regular Accelerations: 15 X 15 Decelerations: None Assessment and Plan Assessment and plan (1) Spontaneous onset of labor: Status: Acute Assessment and plan: Virgen was encouraged to take a break from pushing and will reassess in 1 hour. Indications for section discussed with Genoveva and Brenden if there is failure to progress or tachycardia persists. (2) Maternal fever affecting labor: Status: Acute Assessment and plan: Per consultation with Dr Villa. Ampicillin and gentamycin ordered and comfort measures provided. Will allow the baby to labor down and reassess in 1 hour. Objective Abnormal lab results 02/04/24 Range/Units 15: WBC 10.81 H (4.4-10.8) 10^3/uL RDW 16.2 H (11.7-14.6) % MPV 12.0 H (8.0-11.0) fL Temp Pulse Resp BP Pulse Ox 100.0 F H 117 H 16 133/61 98 02/05/24 00:52 02/05/24 02:01 02/04/24 22:00 02/05/24 01:19 02/05/24 02:01 Laboratory Results WBC 10.81 10^3/uL (4.4-10.8) H 02/04/24 15:25 RBC 4.66 10^6/uL (3.93-5.22) 02/04/24 15:25 Hgb 13.2 g/dL (11.2-15.7) 02/04/24 15:25 Hct 40.1 % (36.0-46.0) 02/04/24 15:25 MCV 86 fL (80-95) 02/04/24 15:25 MCH 28.3 pg (27.0-33.0) 02/04/24 15:25 MCHC 32.9 % (32.0-36.0) 02/04/24 15:25 RDW 16.2 % (11.7-14.6) H 02/04/24 15:25 Plt Count 199 10^3/uL (130-400) 02/04/24 15:25 MPV 12.0 fL (8.0-11.0) H 02/04/24 15:25 Membranes Rupture Positive 02/04/24 13:05 ABO/Rh O Negative 02/04/24 14:55 Antibody Screen POSITIVE 02/04/24 14:55 Antibody Identification Anti-D 02/04/24 14:55 Vital Signs Reviewed: Yes Subjective Patient Reports: New Complaints Interval history since last seen: Virgen has had an urge to push and has been pushing off and on in various positions. tachycardia noted with heart rate 160s-170s. Maternal temp 100 and 100.5. Genoveva is complaining of pain and states that she is unable to continue pushing due to the pain. She was encouraged to push the epidural [employer] and she was repositioned to a seated position for her comfort Results Hemoglobin/Hematocrit: Hgb 13.2 g/dL (11.2-15.7) 02/04/24 15:25 Hct 40.1 % (36.0-46.0) 02/04/24 15:25 Abnormal Lab Findings: Abnormal Labs 02/04/24 15:25 WBC 10.81 H RDW 16.2 H MPV 12.0 H
--- NOTE | 2024-02-05 03:09 | W.OBCONSULT ---
Date of service: 02/05/24 Time of Service: 03:09 Assessment and Plan Assessment and plan (1) Maternal fever affecting labor: Status: Acute (2) Arrested labor: Status: Acute Assessment and plan: Preop counseling: She was informed of the risks of procedure including risk of damage to bowel, bladder, and blood vessels during the time of the delivery. If any of those injuries were to occur she may require a repair at the time of surgery or blood transfusion or possible hysterectomy. I reviewed the risk of infection and the administration of IV Abx prior to and postop secondary to maternal fevery. Informed consent was obtained and her questions were answered. History of Present Illness History of Present Illness Chief Complaint: Arrest of descent at 39w EGA. Maternal fever. Narrative: Pt is a 29yo female currently 39w0d EGA who was admitted to in early labor on 02/04/24 after an unremarkable course. She has been followed by CNM service since 1st trimester. SROM at 0600 on 02/04/24. . Pt labored throughout the day and received an epidural for labor analgesia. She was completely dilated and began maternal expulsive efforts at 00:10 02/05/24. At that time there FHR baseline increased to 170 range and maternal feverto 38.2 noted. She was given IV Ampicillin and Gentamycin. Despite excellent materna effort presenting vertex remained at 0 station with caput present. FHR category 1. Pt requested a primary delivery and I concurred that it would be in her best interest to have a delivery. Consults Consult date: 02/05/24 Requesting physician: Lisa Colin Review of Systems All systems reviewed & are unremarkable except as noted in HPI and below PFSH All Active Problems (Updated 02/05/24 @ 03:27 by Enma Villa MD) Arrested labor (Acute) Maternal fever affecting labor (Acute) Spontaneous onset of labor (Acute) Pedal edema (Acute) Anemia affecting first (Acute) Rh negative state in antepartum period (Acute) Bleeding in early (Acute) 06/07/23. [place] discharge on toilet tissue. hCG 1839/ Rh Oneg 06/10/23. repeat hC. Pt will keep 07/01/23 u/s appt. (Acute) Medical History (Updated 02/05/24 @ 03:27 by Enma Villa MD) Missed menses Social History (System 10/18/23 @ 13:10 by Mila Dalton) Smoking/Tobacco Use Status: Never Smoking risk assessment performed?: Yes Alcohol Intake: former Substance use type: does not use Housing: house Do you feel safe at home: Yes Do you feel safe in your relationship?: Yes History History 1 Para 0 Hx # Term Pregnancies 0 Multiple births 0 Hx # Pregnancies 0 Ectopic pregnancies 0 AB induced 0 Hx Number of Living Children 0 AB spontaneous 0 Exam Narrative Exam Narrative: Sitting in bed with head elevated and foot lowered. No acute distress. Const General: no acute distress Orientation: alert, awake and oriented x3 Resp Effort & Inspection: normal respiratory effort Auscultation: clear to auscultation bilaterally Cardio Rate: regular rate Rhythm: regular rhythm GI Inspection: other (gravid, no focal tenderness) Other: SVE: complete dilation. 0 station. caput. Skin General skin exam: no rashes or lesions noted Neuro General: other (comfortable with epidural in place.) Extrem General: normal to inspection and capillary refill normal Psych Appearance: grossly normal Mental Status: mental status grossly normal Speech and Movement: speech and movement normal Results Last Vital Signs Temp 99.0 F 02/05/24 02:50 Pulse 107 H 02/05/24 03:08 Resp 18 02/05/24 02:00 BP 125/74 02/05/24 03:03 Pulse Ox 98 02/05/24 03:06 Labs 02/04/24 15:25 Labs: Laboratory Results - last 24 hr 02/04/24 02/04/24 02/04/24 13:05 14:55 15:25 WBC Cancelled 10.81 H RBC Cancelled 4.66 Hgb Cancelled 13.2 Hct Cancelled 40.1 MCV Cancelled 86 MCH Cancelled 28.3 MCHC Cancelled 32.9 RDW Cancelled 16.2 H Plt Count Cancelled 199 MPV Cancelled 12.0 H Membranes Rupture Positive ABO/Rh O Negative Antibody Screen POSITIVE Antibody Identification Anti-D
--- NOTE | 2024-02-05 03:20 | PGE_ITS ---
Date of service: 02/05/24 Time of Service: 03:20 Informed Consent Informed Consent: Risk,Benefits,Alternatives Discussed (expectant management v. labor augmentation. ) Contractions Monitor Mode: External Contraction Frequency(min): every 3-5 Contraction Duration(sec): 60 Intensity: Moderate Fetus A Monitor: Internal (FSE) Heart Rate Baseline: 158 Presentation: Vertex Variability: Moderate (6-25 BPM) Categories: Category I FHR Rhythm: Regular Accelerations: 15 X 15 Decelerations: Variable Recurrence: Episodic Assessment and Plan Assessment and plan (1) Maternal fever affecting labor: Status: Acute Assessment and plan: Afebrile (2) Spontaneous onset of labor: Status: Acute Assessment and plan: prepar efor section Objective Abnormal lab results 02/04/24 Range/Units 15:25 WBC 10.81 H (4.4-10.8) 10^3/uL RDW 16.2 H (11.7-14.6) % MPV 12.0 H (8.0-11.0) fL Temp Pulse Resp BP Pulse Ox 99.0 F 112 H 18 128/81 99 02/05/24 02:50 02/05/24 03:18 02/05/24 02:00 02/05/24 03:18 02/05/24 03:16 Laboratory Results WBC 10.81 10^3/uL (4.4-10.8) H 02/04/24 15:25 RBC 4.66 10^6/uL (3.93-5.22) 02/04/24 15:25 Hgb 13.2 g/dL (11.2-15.7) 02/04/24 15:25 Hct 40.1 % (36.0-46.0) 02/04/24 15:25 MCV 86 fL (80-95) 02/04/24 15:25 MCH 28.3 pg (27.0-33.0) 02/04/24 15:25 MCHC 32.9 % (32.0-36.0) 02/04/24 15:25 RDW 16.2 % (11.7-14.6) H 02/04/24 15:25 Plt Count 199 10^3/uL (130-400) 02/04/24 15:25 MPV 12.0 fL (8.0-11.0) H 02/04/24 15:25 Membranes Rupture Positive 02/04/24 13:05 ABO/Rh O Negative 02/04/24 14:55 Antibody Screen POSITIVE 02/04/24 14:55 Antibody Identification Anti-D 02/04/24 14:55 Vital Signs Reviewed: Yes Notable Details: Temp 99.0 Subjective Patient Reports: No new Complaints Interval history since last seen: Genoveva received ampicillin and gentamycin IV. She complained of severe pain and was encouraged to stop pushing and remain in a comfortable position. She requested a delivery. 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 Dr. Villa was called to assess Genoveva and she performed a vaginal exam which showed limited descent and large caput. Options were discussed with Genoveva and Brenden and they agree to a at this time. Results Hemoglobin/Hematocrit: Hgb 13.2 g/dL (11.2-15.7) 02/04/24 15:25 Hct 40.1 % (36.0-46.0) 02/04/24 15:25 Abnormal Lab Findings: Abnormal Labs 02/04/24 15:25 WBC 10.81 H RDW 16.2 H MPV 12.0 H
[2024-02-05] MEDS: Lactated Ringers 1,000 ML 30 ML IV ×2 (03:52→08:31)
[2024-02-05] MEDS: Azithromycin 500 MG VIAL (04:15)
--- NOTE | 2024-02-05 04:26 | PLAC_PTH ---
PATIENT: Carmela Ragsdale LOC: OBS U#:[id number] AGE/SX: 29/F ROOM: OBS.303 RE02/04/[address]: Lisa Colin : 1995 BED: A DIS: 02/07/2024 SPEC #: [id number] RECD: 02/05/24 12:52 STATUS: SOUEdgar REQ #: [id number] SLY: 02/05/24 04:[address]: Enma Villa DEPT: Surgical Specimen RECD BY: Ibeth Dumont ENTERED: 02/05/24 12:54 SP TYPE: PLAC OTHR DR: Lisa Colin Tissues: 1 - PLACENTA (3RD TRIMESTER) Procedures: GROSS AND MICRO LEVEL 5 Comments: [id number]
[2024-02-05] MEDS: Bupivacaine 0.25% Pres-Free 30 ML VIAL (05:04)
--- NOTE | 2024-02-05 05:21 | W.PM.OBCSECT ---
Date of service: 02/05/24 Time of Service: 05:21 Operative Note Operative Note Delivery Method: Unscheduled STAT: No and Primary NTSV>37 Weeks: Yes DATE OF PROCEDURE: 02/05/24 PRE-OP DIAGNOSES: IUP@ 39w0d EGA, maternal fever in labor, arrest of descent POST-OP DIAGNOSES: same PROCEDURE: Primary low-transverse delivery SURGEON: Enma Villa Automatic Cigar Wrapper Tender: Lisa Colin Anesthesia: spinal Estimated blood loss (mL): 400 Pathology: other (Placenta to pathology, umbilical cord gases to lab) Complications: None Patient was transported to: floor Patient's condition: stable Indications: 29-year-old G1 now P1 female with spontaneous rupture of membranes at 39 weeks EGA who had arrest of descent at 0 station and maternal fever in labor. Findings: Viable male in OP position, Weight: 8lbs 14oz Apgars: / , meconium stained amniotic fluid normal placenta and adnexa Procedure Description: Patient was taken to the operating room she is placed in the sitting position, her epidural catheter was removed and spinal anesthesia was administered without difficulty. She was then placed in the dorsal supine position with a leftward tilt. SCDs and a Tirado catheter to gravity drainage were in place. A vaginal prep with Betadine was performed and the patient was prepped and draped in the usual sterile fashion.Surgical timeout was performed. Preop antibiotics were administered. After a adequate level of anesthesia was achieved a Pfannenstiel skin incision was made approximately 2 cm superior to the pubic symphysis using a scalpel and the underlying subcutaneous tissue dissected using Bovie electrocautery to the level of the rectus fascia. The rectus fascia was then nicked in the midline and the fascial incision extended laterally using Bovie electrocautery. 2 Brando clamps were applied to the superior rectus fascia and the rectus fascia was dissected off of the underlying rectus muscles using Bovie electrocautery and blunt technique. A similar technique was carried out on the inferior rectus fascia. Rectus muscles were then in the midline and the peritoneum entered bluntly. The peritoneal incision was extended laterally using blunt technique. The vesicle-uterine peritoneum over lower uterine segment was incised with curved Metsumbaum scissors and the bladder flap created bluntly. Scalpel was used to incise the lower uterine segment in a transverse fashion. The uterine incision was extended bluntly and the amniotic sac was ruptured with clear amniotic fluid noted. A single gloved hand was placed into the uterine cavity and the head was successfully disengaged after approximately a minute of gentle pressure in a cephalad direction. Once the vertex was freed from the pelvic inlet the head was delivered through the uterine incision followed by the trunk and extremities with the assistance of fundal pressure. The cord was doubly clamped and cut and the handed off to the waiting pediatric team. A segment of umbilical cord was obtained and the placenta was extracted with a combination of fundal massage and gentle cord traction. The uterus was exteriorized cleared of all clots and debris and the uterine incision reapproximated with a running lock suture of 0 Vicryl followed by a second imbricating suture of 0 Vicryl. Uterine incision was noted be hemostatic. The uterus was returned to the abdomen and the paracolic gutters cleared of all clots and debris. Uterine incision and the along with the bladder flap and the abdominal wall were all inspected and noted to be hemostatic. The rectus fascia was reapproximated with a running suture of 0 Vicryl. space within the subcutaneous tissue closed with a running suture of 2-0 Vicryl. The skin incision was reapproximated with a subcuticular closure of 4-0 Vicryl. Steri strips, skin glue and a Mepilex dressing were applied. The uterus was massaged for any remaining clots and debris. The patient was transported to recovery area in stable condition. All sponge, lap, and needle counts correct x2. [place] Gender: Male weight: 8 lb 14 oz Gender-Baby B: Male
[2024-02-05 07:44] LABS: Abs Immature Grans 0.07 10^3/uL (0.0-0.06); Absolute Eosinophil Count 0.03 10^3/uL (0.0-0.7); Absolute Lymphocyte Count 1.25 10^3/uL (1.2-3.4); Absolute Monocyte Count 0.94 10^3/uL (0.1-0.8); Basophils % 0.3 %; Eosinophils % 0.2 %; HCT 36.4 % (36.0-46.0); HGB 11.9 g/dL (11.2-15.7); Immature Grans % 0.5 %; Lymphocytes % 8.1 %; MCH 28.3 pg (27.0-33.0); MCHC 32.7 % (32.0-36.0); MCV 87 fL (80-95); MPV 11.4 fL (8.0-11.0); Monocytes % 6.1 %; Neutrophils % 84.8 %; Platelet Count 180 10^3/uL (130-400); RDW 16.5 % (11.7-14.6); RDW-SD 52.1 fL; WBC 15.44 10^3/uL (4.4-10.8)
[2024-02-05 07:45] LABS: Absolute Basophil Count 0.05 10^3/uL (0.0-0.2); Absolute Neutrophil Count 13.09 10^3/uL (1.2-6.7)
[2024-02-05] MEDS: CLINDAMYCIN 900 MG/50 ML BAG 50 MG IVPB ×2 (08:30→22:28)
[2024-02-05] MEDS: Normal Saline Flush 10 ML SYR IVP ×2 (08:31→23:48)
[2024-02-05] MEDS: Ketorolac 30 MG/ML VIAL IVP ×3 (09:35→20:55)
--- NOTE | 2024-02-05 14:30 | W.ANESPOSTOP ---
Postoperative Evaluation Date, Time and Location Date Performed: 02/05/24 Time Performed: 14:30 Patient Location: Day Surgery Unit Vital Signs Most Recent Imported Vital Signs: Most Recent Vital Signs Temp Pulse Resp BP Pulse Ox 36.2 C L 93 H 16 98/53 L 97 02/05/24 07:30 02/05/24 07:46 02/05/24 12:38 02/05/24 07:46 02/05/24 07:46 Pain Score Most Recent Pain Score: Most Recent Pain Score Pain Level 2 02/05/24 12:38 Assessment Mental Status: Awake (Alert & Oriented to Patient Baseline) Airway and Respiratory Function: Patent airway with normal (patient baseline) respiratory exam Cardiovascular Function: Hemodynamically Stable Hydration Status: Adequately Hydrated Nausea & Vomiting: No Nausea or Vomiting Pain: Pain is tolerable per patient Peripheral Nerve Block: Patient did not receive a nerve block
[2024-02-05] MEDS: Docusate Sodium 100 MG CAP PO (19:45)
[2024-02-06] VITALS (10 sets, daily range): BP systolic 99–115; BP diastolic 59–78; PULSE 88–101; RESP 16–18; TEMP 36.4–36.9; O2SAT 95–99
[2024-02-06] MEDS: AMPICILLIN SODIUM 2 GM in Normal Saline 100 ML IVPB (02:32)
[2024-02-06] MEDS: Ketorolac 30 MG/ML VIAL IVP (03:09)
[2024-02-06 07:11] LABS: Abs Immature Grans 0.09 10^3/uL (0.0-0.06); Absolute Basophil Count 0.03 10^3/uL (0.0-0.2); Absolute Eosinophil Count 0.08 10^3/uL (0.0-0.7); Basophils % 0.3 %; Eosinophils % 0.7 %; HCT 30.8 % (36.0-46.0); HGB 10.2 g/dL (11.2-15.7); Immature Grans % 0.8 %; MCH 28.3 pg (27.0-33.0); MCHC 33.1 % (32.0-36.0); MCV 85 fL (80-95); MPV 11.8 fL (8.0-11.0); Monocytes % 6.5 %; Neutrophils % 77.7 %; Platelet Count 177 10^3/uL (130-400); RBC 3.61 10^6/uL (3.93-5.22); RDW 16.7 % (11.7-14.6); RDW-SD 52.7 fL; WBC 11.46 10^3/uL (4.4-10.8)
[2024-02-06 07:14] LABS: Absolute Monocyte Count 0.74 10^3/uL (0.1-0.8)
[2024-02-06] MEDS: CLINDAMYCIN 900 MG/50 ML BAG 50 MG IVPB (08:11)
[2024-02-06] MEDS: oxyCODONE 5 mg/Acetaminophen 325 mg TAB PO (08:12)
[2024-02-06] MEDS: Docusate Sodium 100 MG CAP PO ×2 (08:12→17:58)
--- NOTE | 2024-02-06 09:22 | W.PM.OBPNV1 ---
Date of service: 02/06/24 Time of Service: 09:22 Assessment and Plan Assessment and plan (1) Arrested labor: Status: Acute Assessment and plan: antibiotics for presumed chorioammnioitis will be completed today. (2) delivery delivered: Status: Acute Assessment and plan: POD 1 pLTCS. Pt will remain inpt today and be discharged home 02/07/24. Pt will be assisted with . Subjective Subjective Interval history: Attempting during night. Pt reports having some issues with proper latch. Pain this morning controlled with Percocet in addition to NSAIDs. Pt's flowsheet pulse listed as 101. I rechecked pulse: 80. Patient comments: Incisional pain, Tolerating diet and Flatus present [place] baby status: Doing well, Nursing well (Pt has been q2hrs. with issues latching), Rooming in and Strong Bonding Observed [place] feeding status: Exclusively breast feeding Exam Physical Exam Vital signs: Temp Pulse Resp BP Pulse Ox 98.5 F 101 H 16 115/70 95 02/06/24 03:15 02/06/24 03:15 02/06/24 04:00 02/06/24 03:15 02/06/24 03:15 Vital Signs Reviewed: Yes Notable Details: pulse rechecked by me: 80 bpm Constitutional Constitutional: no acute distress HEENT Exam HEENT Exam: Normal Neck Exam Neck Exam: Normal Respiratory Exam Respiratory Exam: Normal Cardiovascular Exam Cardiovascular Exam: Normal Abdominal Exam Abdomen: Tender Comments: Mepilex dressing intact. No ecchymosis. No induration. Fundal Exam Fundus: Below Umbilicus and Firm Rectal Exam Rectal Exam: Not Done Extremities Exam Extremity Exam: Normal and Edema (bilateral pedal.) Back/Spine/Pelvis Exam Back Exam: Not Done Skin Exam Skin Exam: Normal Neurological Exam Neurological Exam: Normal Psychiatric Exam Psychiatric Exam: Normal Results Hemoglobin/Hematocrit: Hgb 10.2 g/dL (11.2-15.7) L 02/06/24 06:52 Hct 30.8 % (36.0-46.0) L 02/06/24 06:52 Abnormal Lab Findings: Abnormal Labs 02/04/24 02/05/24 02/06/24 15:25 07:30 06:52 WBC 10.81 H 15.44 H 11.46 H RBC 3.61 L Hgb 10.2 L Hct 30.8 L RDW 16.2 H 16.5 H 16.7 H MPV 12.0 H 11.4 H 11.8 H Absolute Neutrophils 13.09 H 8.90 H Absolute Monocytes 0.94 H
--- NOTE | 2024-02-06 12:23 | W.PM.OBPNV1 ---
Date of service: 02/06/24 Time of Service: 12:23 Assessment and Plan Assessment and plan (1) delivery delivered: Status: Acute (2) Anemia affecting first : Status: Acute (3) Rh negative state in antepartum period: Status: Acute Exam Physical Exam Vital signs: Temp Pulse Resp BP Pulse Ox 97.7 F 95 H 16 113/73 98 02/06/24 11:02 02/06/24 11:02 02/06/24 11:02 02/06/24 11:02 02/06/24 11:02 Results Hemoglobin/Hematocrit: Hgb 10.2 g/dL (11.2-15.7) L 02/06/24 06:52 Hct 30.8 % (36.0-46.0) L 02/06/24 06:52 Abnormal Lab Findings: Abnormal Labs 02/04/24 02/05/24 02/06/24 15:25 07:30 06:52 WBC 10.81 H 15.44 H 11.46 H RBC 3.61 L Hgb 10.2 L Hct 30.8 L RDW 16.2 H 16.5 H 16.7 H MPV 12.0 H 11.4 H 11.8 H Absolute Neutrophils 13.09 H 8.90 H Absolute Monocytes 0.94 H
[2024-02-06] MEDS: Ibuprofen 600 MG TAB PO ×2 (13:35→20:56)
[2024-02-06] MEDS: RHO(D) Immune Globulin 1,500 UNIT Syringe 1500 UNIT IM (14:48)
[2024-02-06] MEDS: Acetaminophen 325 MG TAB 650 MG PO ×2 (17:58→20:56)
[2024-02-07 03:20] VITALS: BP 106/69; PULSE 68; RESP 16; TEMP 36.6; O2SAT 98
[2024-02-07] MEDS: Acetaminophen 325 MG TAB 650 MG PO ×2 (04:34→11:43)
[2024-02-07] MEDS: Ibuprofen 600 MG TAB PO ×2 (04:34→11:44)
[2024-02-07 08:00] VITALS: BP 111/75; PULSE 90; RESP 12; TEMP 37
[2024-02-07] MEDS: Docusate Sodium 100 MG CAP PO (08:47)
--- NOTE | 2024-02-07 08:47 | W.PM.OBDISCH ---
Date of service: 02/07/24 Time of Service: 08:47 DS: Diagnosis Discharge Diagnosis (1) delivery delivered: Status: Acute (2) Anemia affecting first : Status: Acute (3) Rh negative state in antepartum period: Status: Acute Discharge Plan Disposition Patient Disposition: Home Condition: Stable Discharge Details Reason For Visit: NST Admit Date/Time: 02/04/24 14:38 Admit Provider: Lisa Colin Attending Provider: Lisa Colin Primary Care Provider: Lisa Colin Hospital Course Hospital Course: 29-year-old G1 now P1 female with spontaneous rupture of membranes at 39 weeks EGA who had arrest of descent at 0 station and maternal fever in labor. She received Ampicillin and Gentamycin intrapartum with Clindamycin added to the regime for 24hrs . Afebrile postop. Successfully at time of discharge. She will f/u in one week for removal of Mepilex dressing. Ibuprofen and Acetaminophen for postop pain. Findings: Viable male in OP position, Weight: 8lbs 14oz Apgars: 8 /9 , meconium stained amniotic fluid normal placenta and adnexa. Path report of placenta pending at time of discharge. Home Meds and New Rx's Prescriptions: No Action Classic 28 mg iron- 800 mcg tablet 1 tab PO DAILY ferrous sulfate [Feosol] 325 mg (65 mg iron) tablet 325 mg PO DAILY Qty: 30 7RF polyethylene glycol 3350 [Miralax] 17 gram/dose powder 17 g PO DAILY docusate sodium [Colace] 100 mg capsule 100 mg PO TID Qty: 90 3RF aspirin 81 mg tablet,chewable 81 mg PO DAILY Fiber Gummies 2 gram tablet,chewable 2 g PO .two times daily pantoprazole [Protonix] 40 mg tablet,delayed release (DR/EC) 40 mg PO DAILY Qty: 30 5RF Discharge Instructions Stand Alone Forms: BC Instructions, BC Discharge Instruc Activity:: Activity as Tolerated Equipment/Supplies:: No Equipment Needed Diet:: As Tolerated OB:DS Summary Summary Delivery Method: Primary Episiotomy Description: None Laceration Description: None Laceration Extension: N/A complications OB DS: none Contraception Discussed Contraception Discussed: No, Infant Gender-Baby A: Male (Yousif) weight: 8 lb 14 oz Disposition of Baby A: Home Infant Gender-Baby B: Male Status at Discharge Functional status at discharge: independent ambulation Overall status at discharge: patient is progressing back to baseline Mental Status: mental status grossly normal Speech and Movement: speech and movement normal Mood: congruent mood Affect: normal affect Quality:SDOH Health Related Social Needs: No Data to Display Exam Physical Exam Vital signs: Temp Pulse Resp BP Pulse Ox 97.9 F 68 16 106/69 98 02/07/24 03:20 02/07/24 03:20 02/07/24 03:20 02/07/24 03:20 02/07/24 03:20 Vital Signs Reviewed: Yes Constitutional Constitutional: no acute distress Comments: Reports no BM yet. HEENT Exam HEENT Exam: Normal Neck Exam Neck Exam: Normal Respiratory Exam Respiratory Exam: Normal Cardiovascular Exam Cardiovascular Exam: Normal Abdominal Exam Abdomen: Tender Comments: Incision covered with Mepilex dressing. No ecchymosis of abd wall. Fundal Exam Fundus: Below Umbilicus and Firm Rectal Exam Rectal Exam: Not Done Extremities Exam Extremity Exam: Normal and Full ROM Comment: pt reports restless legs last Skin Exam Skin Exam: Normal Neurological Exam Neurological Exam: Normal Psychiatric Exam Psychiatric Exam: Normal PFSH All Active Problems (Updated 02/06/24 @ 12:24 by Mikala Hollis CNM) delivery delivered (Acute) 02/05/24 Arrested labor (Acute) Maternal fever affecting labor (Acute) Pedal edema (Acute) Anemia affecting first (Acute) Rh negative state in antepartum period (Acute) Bleeding in early (Acute) 06/07/23. [place] discharge on toilet tissue. hCG 1839/ Rh Oneg 06/10/23. repeat hC. Pt will keep 07/01/23 u/s appt. Medical History (Updated 02/06/24 @ 12:24 by Mikala Hollis CNM) Spontaneous onset of labor Missed menses Social History (System 10/18/23 @ 13:10 by Mila Dalton) Smoking/Tobacco Use Status: Never Smoking risk assessment performed?: Yes Alcohol Intake: former Substance use type: does not use Housing: house Do you feel safe at home: Yes Do you feel safe in your relationship?: Yes History History 1 Para 0 Hx # Term Pregnancies 1 Multiple births 0 Hx # Pregnancies 0 Ectopic pregnancies 0 AB induced 0 Hx Number of Living Children 1 AB spontaneous 0 Past Pregnancies Del. Date GA/Weeks # Preg Succ Route Wgt Sex Labor Lgth Anesthesia Location Prov Complic 02/05/24 39 No Yes 14 oz Female aoc/KM Delivery Date: 02/05/24 Last Updated by: Emna Villa MD SROM, maternal fever in labor, arrest of descent, Yousif DS: Data Vitals/I&O Vitals and I&O: Vital Signs Temperature 97.9 F 02/07/24 03:20 Temperature 98.4 F 02/04/24 13:32 Temperature Source Oral 02/07/24 03:20 Pulse 68 02/07/24 03:20 Pulse 102 02/04/24 13:32 Pulse Rhythm Regular 02/06/24 21:53 Respiratory Rate 16 02/07/24 03:20 Respiratory Depth Normal 02/06/24 21:53 Blood Pressure 106/69 02/07/24 03:20 Blood Pressure 126/81 02/04/24 13:32 Blood Pressure Mean 81 02/07/24 03:20 Pulse Oximetry 98 02/07/24 03:20 Oxygen Delivery Method Room Air 02/04/24 15:51 Oxygen Flow Rate 0 02/04/24 15:51 Pain Level 2 02/06/24 15:10 Comment Temp rechecked with ear thermometer 02/05/24 12:05 Intake & Output 02/06/24 02/06/24 02/07/24 11:59 23:59 11:59 Intake Total 927 / 927 Output Total 1650 / 3050 1400 / 3050 Balance -723 / -2123 -1400 / -2123 Weight 213 lb Intake: IV 927 / 927 Output: Urine 1650 / 3050 1400 / 3050 Other: Urine Color Yellow Pale Urine Appearance Clear Clear Urine Odor None Comment Patient still has kelsey at this time Data Completed and Pending Labs on day of discharge: Labs from last 24 hours 02/06/24 02/04/24 06:52 14:55 ABO/Rh O Negative Antibody Screen POSITIVE Antibody Identification Anti-D Screen Negative Rhogam Unit Number [id number] Unit Expiration Date 04/08/24 Product Lot # [id number]
--- NOTE | 2024-02-11 06:58 | W.PM.OBNL1 ---
Date of service: 02/04/24 Time of Service: 18:00 Informed Consent Informed Consent: Risk,Benefits,Alternatives Discussed (expectant management v. labor augmentation. ) Pelvic Exam Dilation: 1 Effacement (%): 50 station: -2 Consistency: soft Vaginal Exam Presentation: Cephalic Contractions Monitor Mode: External Contraction Frequency(min): every 3-5 Contraction Duration(sec): 60 Intensity: Moderate Fetus A Monitor: External (US) Heart Rate Baseline: 140 Presentation: Vertex Variability: Moderate (6-25 BPM) Categories: Category I Accelerations: 15 X 15 Decelerations: None Assessment and Plan Assessment and plan (1) Spontaneous onset of labor: Assessment and plan: Vertex confirmed with POCUS exam. Objective Temp Pulse Resp BP Pulse Ox 98.6 F 90 12 111/75 98 02/07/24 08:00 02/07/24 08:00 02/07/24 08:00 02/07/24 08:00 02/07/24 03:20 Laboratory Results WBC 11.46 10^3/uL (4.4-10.8) H 02/06/24 06:52 RBC 3.61 10^6/uL (3.93-5.22) L 02/06/24 06:52 Hgb 10.2 g/dL (11.2-15.7) L 02/06/24 06:52 Hct 30.8 % (36.0-46.0) L 02/06/24 06:52 MCV 85 fL (80-95) 02/06/24 06:52 MCH 28.3 pg (27.0-33.0) 02/06/24 06:52 MCHC 33.1 % (32.0-36.0) 02/06/24 06:52 RDW 16.7 % (11.7-14.6) H 02/06/24 06:52 Plt Count 177 10^3/uL (130-400) 02/06/24 06:52 MPV 11.8 fL (8.0-11.0) H 02/06/24 06:52 Immature Gran % 0.8 % 02/06/24 06:52 Neutrophils % 77.7 % 02/06/24 06:52 Lymphocytes % 14.0 % 02/06/24 06:52 Monocytes % 6.5 % 02/06/24 06:52 Eosinophils % 0.7 % 02/06/24 06:52 Basophils % 0.3 % 02/06/24 06:52 Nucleated RBC % 0.0 % (0.0-0.3) 02/06/24 06:52 Absolute Neutrophils 8.90 10^3/uL (1.2-6.7) H 02/06/24 06:52 Absolute Lymphocytes 1.60 10^3/uL (1.2-3.4) 02/06/24 06:52 Absolute Monocytes 0.74 10^3/uL (0.1-0.8) 02/06/24 06:52 Absolute Eosinophils 0.08 10^3/uL (0.0-0.7) 02/06/24 06:52 Absolute Basophils 0.03 10^3/uL (0.0-0.2) 02/06/24 06:52 Membranes Rupture Positive 02/04/24 13:05 ABO/Rh O Negative 02/04/24 14:55 Antibody Screen POSITIVE 02/04/24 14:55 Antibody Identification Anti-D 02/04/24 14:55 Screen Cancelled 02/06/24 07:36 Rhogam Unit Number [id number] 02/04/24 14:55 Unit Expiration Date 04/08/24 02/04/24 14:55 Product Lot # [id number] 02/04/24 14:55 Subjective Patient Reports: New Complaints Interval history since last seen: Genoveva reports that contractions are stronger. Side lying release performed by Haydee Streeter RN Results Hemoglobin/Hematocrit: Hgb 10.2 g/dL (11.2-15.7) L 02/06/24 06:52 Hct 30.8 % (36.0-46.0) L 02/06/24 06:52 Abnormal Lab Findings: Abnormal Labs 02/04/24 02/05/24 02/06/24 15:25 07:30 06:52 WBC 10.81 H 15.44 H 11.46 H RBC 3.61 L Hgb 10.2 L Hct 30.8 L RDW 16.2 H 16.5 H 16.7 H MPV 12.0 H 11.4 H 11.8 H Absolute Neutrophils 13.09 H 8.90 H Absolute Monocytes 0.94 H WW Pocus Exam Exam testing Date/Time of Exam: Date of exam: 02/11/2024 Time of exam: 6:58 am Performing Provider: Lisa Colin BRIDGET Calculator Estimated Delivery Date Method WG Current Estimate 02/12/24 Ultrasound #1 Other Estimates 01/31/24 LMP (Certain) Delivery Date-Baby A 02/05/24 39w 0d position Gestational age (weeks): 39 Presentation: Vertex Coding for Transabdominal exam: Complete exam
== END 2024-02-07 14:30 | disposition home or self-care (01) | DRG 786 ==
LOC: BCD 14:59 → OBS 14:59
PROVIDERS: Obstetrics & Gynecology Gynecology; Admitting Provider Advanced Practice Midwife; PCP Advanced Practice Midwife; Visit Provider Advanced Practice Midwife
PROC: 10D00Z1 Extraction of Products of Conception, Low, Open Approach (ICD-10-PCS; CPT 59514; principal; 2024-02-05 03:30)
DX: O36.63X0 Maternal care for excessive fetal growth, third trimester, not applicable or unspecified (principal); O41.1230 Chorioamnionitis, third trimester, not applicable or unspecified; O99.02 Anemia complicating childbirth; Z67.91 Unspecified blood type, Rh negative; O75.2 Pyrexia during labor, not elsewhere classified; Z37.0 Single live birth; O26.893 Other specified pregnancy related conditions, third trimester; Z3A.39 39 weeks gestation of pregnancy; D64.9 Anemia, unspecified; O62.1 Secondary uterine inertia; O76 Abnormality in fetal heart rate and rhythm complicating labor and delivery; O77.0 Labor and delivery complicated by meconium in amniotic fluid
CPT/HCPCS: 59514; 36410; 36415; 84112; 85027; 85461; 86850; 86900; 86901; 90384; 85025; 86870; 88307; J0290; J0456; J0665; J0737; J1580; J1885; J2274; J2405; J2790; J3010

== ENCOUNTER 2024-03-31 03:26 | Outpatient (CLI) | payer BC, SELFPAY ==
[2024-03-31 09:03] LABS: Hemoglobin A1C 5.8 % (<5.7)
[2024-03-31 11:15] LABS: GTT Comment See Comments
== END 2024-03-31 03:27 | disposition home or self-care (01) ==
LOC: LBO 03:26
PROVIDERS: PCP Advanced Practice Midwife; Visit Provider Advanced Practice Midwife
DX: R73.09 Other abnormal glucose (principal); Z30.430 Encounter for insertion of intrauterine contraceptive device
CPT/HCPCS: 36415; 82951; 83036

== ENCOUNTER 2024-10-09 00:29 | Outpatient (CLI) | payer BC, SELFPAY ==
[2024-10-09 10:50] LABS: Hemoglobin A1C 5.3 % (<5.7)
== END 2024-10-09 00:30 | disposition home or self-care (01) ==
LOC: LBO 00:29
PROVIDERS: PCP Nurse Practitioner Family; Visit Provider Advanced Practice Midwife
DX: R73.09 Other abnormal glucose (principal)
CPT/HCPCS: 36415; 83036